=== PATIENT | female | born 1930 | race African-American/Black ===

== ENCOUNTER 2017-12-29 12:06 | Inpatient (IN) | payer OTHER ==
[~2017-12-29] VITALS: Ht 157.5 cm; Wt 68.0 kg
--- NOTE | ~2017-12-29 | 2DMMODE ---
[facility] [address] [place] [address] 2 D/M-MODE ECHOCARDIOGRAM Name: NEWTONCHELA Room #: 428-P [facility] IN ..#: [id number] Admission: 12/29/17 Attend Phys: Yuriy Ortega MD Discharge: Date of : [birth year] Date of Service: 01/05/18 1637 Report #: [id number] THIS REPORT FOR: //name// APPROVED REPORT Study performed: 01/05/2018 12:44:55 EXAM: Comprehensive 2D, Doppler, and color-flow Echocardiogram Patient Location: Bedside Room #: 428 Status: routine BSA: 1.69 HR: 76 bpm BP: 127/57 mmHg Other Information Study Quality: Good Indications Congestive Heart Failure CAD 2D Dimensions RVDd: 27.17 mm LVEF(%): 69.65 (>50%) IVSd: 15.50 (7-11mm) LVOT Diam: 19.74 (18-24mm) LVDd: 38.52 mm PWd: 11.63 (7-11mm) Ascending Ao: 35.17 (22-36mm) LVDs: 23.65 (25-40mm) Aortic Root: 25.10 mm IVC: 21.00 mm Snatana's LVEF: 69.65 % Volumes Left Atrial Volume (Systole) Single Plane 4CH: 55.58 mL Single Plane 2CH: 78.97 mL LA ESV Index: 42.00 mL/m2 Aortic Valve AoV Peak John.: 1.79 m/s AO Peak Gr.: 12.84 mmHg LVOT Max P.86 mmHg LVOT Max V: 1.21 m/s ASHOK Vmax: 2.07 cm2 Pulmonary Valve PV Peak John.: 1.20 m/s PV Peak Gr.: 5.74 mmHg [facility] [place] [address] 2 D/M-MODE ECHOCARDIOGRAM Name: CHELA GLEZ Room #: 428-P ADM IN M.R.#: [id number] Admission: 12/29/17 Attend Phys: Yuriy Ortega MD Discharge: Date of : 11/01/[birth year] Date of Service: 01/05/18 1637 Report #: [id number] Tricuspid Valve TR Peak John.: 3.22 m/s TR Peak Gr.: 41.44 mmHg PA Pressure: 51.00 mmHg Left Ventricle The left ventricle is normal size. Moderate concentric left ventricular hypertrophy. Left ventricular systolic function is moderate to severely decreased. LVEF is 25-30%. Hypokinesis of mid to distal septum, anterolateral wall, and inferoapex The diastolic function is abnormal. Right Ventricle The right ventricle is normal size. The right ventricular systolic function is normal. Atria Left atrium is dilated. Right atrium is dilated. Aortic Valve Aortic valve is mildly calcified. No aortic regurgitation is present. There is no aortic valvular stenosis. Mitral Valve Moderate mitral annular calcification Mild mitral regurgitation. No evidence of mitral valve stenosis. Tricuspid Valve The tricuspid valve is normal in structure. There is moderate tricuspid regurgitation. Estimated PAP 50 mmHg. There is moderate pulmonary hypertension. Pulmonic Valve The pulmonary valve is normal in structure. Mild pulmonic regurgitation. Great Vessels The aortic root is normal in size. IVC is dilated and collapses >50% with inspiration. Pericardium Small pericardial effusion. <Conclusion> Left ventricular systolic function is moderate to severely decreased. [facility] [address] [place] [address] 2 D/M-MODE ECHOCARDIOGRAM Name: CHELA GLEZ Room #: 428-P ADM IN .R.#: [id number] Admission: 12/29/17 Attend Phys: Yuriy Ortega MD Discharge: Date of : [birth year]/01/[birth year] Date of Service: 01/05/181636 Report #: [id number] LVEF is 25-30%. Hypokinesis of mid to distal septum, anterolateral wall, and inferoapex Both atria are dilated. Aortic valve is mildly calcified. No aortic regurgitation or stenosis Moderate mitral annular calcification. Mild mitral regurgitation. There is moderate tricuspid regurgitation. Estimated pulmonary artery pressure of 50 mmHg. Small pericardial effusion. <ELECTRONICALLY SIGNED> By: Gus Diaz MD, [facility] 01/05/181636 36 36 Gus Diaz MD, [facility] /INF
--- NOTE | ~2017-12-29 | EKG ---
[address] [address] [place] [address] ELECTROCARDIOGRAM REPORT Name: CHELA GLEZ Room #: 428-P ADM IN M.R.#: [id number] Admission: 12/29/17 Attend Phys: Yuriy Ortega MD Discharge: Date of : 11/01/[birth year] Report #: [id number] THIS REPORT FOR: //name// [facility] ED Test Date: 2017-12-29 Test Time: 12:19:41 Pat Name: CHELA GLEZ Department: Room: [facility] Gender: F [employer] Dean: KATERINE : 1930 Requested By: Cynthia Gonzales Order Number: [id number] MD: Gus Diaz Measurements Intervals [place] Rate: 74 P: 11 RI: 221 QRS: -46 QRSD: 126 T: 2 QT: 465 QTc: 516 Interpretive Statements Sinus rhythm Prolonged RI interval Left bundle branch block Baseline wander in lead(s) V2 No previous ECG available for comparison Electronically Signed On 12-29-2017 16:54:09 CDT by Gus Diaz [email or web address] <ELECTRONICALLY SIGNED> By: Gus Diaz MD, [facility] 12/29/17 1654 1219 1219 Gus Diaz MD, [facility] /EPI
--- NOTE | ~2017-12-29 | P ---
[facility] [place] [place] [address] PROCEDURE REPORT Name: CHELA GLEZ Room #: 428-P [facility] IN .R.#: [id number] Admission: 12/29/17 Attend Phys: Yuriy Ortega MD Discharge: Date of : 11/01/[birth year] Report #: [id number] THIS REPORT FOR: //name// CC: FAM unknown Yuriy Ortega MD DATE OF SERVICE: 01/05/2018 PROCEDURE PERFORMED: Upper endoscopy. HISTORY OF PRESENT ILLNESS: The patient is an 87-year-old female who presented with an upper GI bleed, underwent upper endoscopy by my partner, Dr. Askew on 12/31/2017. She was noted to have severe esophagitis. There was some bright red blood, but not brisk bleeding near the GE junction, but not a specific site was identified. She also had a large hiatal hernia. She has been on PPI therapy. Her hemoglobin remains low, but stable. She has had a hemoglobin of 7 in the last 3 days. Because of this the plan is to repeat upper endoscopy. DESCRIPTION OF PROCEDURE: The risks and benefits of the procedure were explained to the patient those risks including but not limited to bleeding, perforation, the risk of sedation. She understood these risks and gave informed consent. Sedation was given using propofol per anesthesia. Next, using a standard Olympus upper endoscope, the scope was placed in the patient's mouth and advanced under direct vision through the esophagus, stomach and into the second portion of the duodenum. The mid and distal esophagus showed grade D erosive esophagitis. No active bleeding appears to be in the process of healing. At the GE junction, there were no signs of bleeding. Overall upon entering the stomach, a large hiatal hernia was noted. There was a mild gastritis noted, but no ulcers or erosions. There was no blood noted throughout the exam today. The antrum was normal. The pylorus was normal and patent. The duodenal bulb, first and second portion were all normal. The scope was then withdrawn and the procedure terminated. The patient tolerated the procedure well. IMPRESSION: 1. Grade D erosive esophagitis suspect this is in the process of healing. No evidence of bleeding. 2. Large hiatal hernia. 3. Mild gastritis. 4. Otherwise, normal upper endoscopy. RECOMMENDATIONS: Continue PPI therapy and monitoring hemoglobin. [address] [address] PROCEDURE REPORT Name: CHELA GLEZ Room #: 428-P [facility] IN .R.#: [id number] Admission: 12/29/17 Attend Phys: Yuriy Ortega MD Discharge: Date of : 11/01/[birth year] Report #: [id number] Thank you for allowing me to participate in her care. <ELECTRONICALLY SIGNED> By: Kd Molina MD 01/07/18 1032 1548 1016 Kd Molina MD /nt
--- NOTE | ~2017-12-29 | P ---
[facility] [place] [address] [place] [address] PROCEDURE REPORT Name: CHELA GLEZ Room #: 428-P ADM IN M.R.#: [id number] Admission: 12/29/17 Attend Phys: Yuriy Ortega MD Discharge: Date of : 11/01/[birth year] Report #: [id number] THIS REPORT FOR: //name// CC: Dr. Chan FAM unknown Yuriy Ortega DATE OF SERVICE: 12/31/2017 INPATIENT UPPER ENDOSCOPY BRIEF HISTORY: The patient is an 87-year-old woman who presented with anemia and hematemesis. PREOPERATIVE DIAGNOSIS: Anemia and hematemesis. POSTOPERATIVE DIAGNOSES: 1. Large hiatus hernia. 2. Esophagitis with oozing of bright red blood. MEDICATIONS: Deep sedation with propofol per anesthesia. SPECIMEN: None. ESTIMATED BLOOD LOSS: None related. PROCEDURE: Esophagogastroduodenoscopy . FINDINGS: Prior to propofol sedation, procedure of upper endoscopy was discussed with the patient. She indicates she understands and desires that we proceed. With the patient in left lateral decubitus position, the Olympus video endoscope was inserted in the cervical esophagus under direct vision without difficulty. The scope was advanced in the distal esophagus and it was noted to be filled with blackish liquid. We immediately started aspirating this blackish liquid. The distal esophagus was cleared and the GE junction was visualized. There was a streak of bright red blood; however, a specific significant bleeding site could not be seen. There was friability in this area, but an ulcer was not seen, also a mass lesion was not seen. The scope was advanced into a large pool of blackish fluid. Almost all of this was aspirated away with the scope. Upon further inspection, this was felt to represent a large hiatus hernia. There was a small amount of articular black material and solid black material, which could not be aspirated out. Almost all the fluid was removed. I was able to retroflex the scope in the hiatus hernia. I could see a little bit of blood at the GE junction, but could not see an actively spurting or markedly bleeding [facility] [address] [place] [address] PROCEDURE REPORT Name: GLEZCHELA Room #: 428- ADM IN .R.#: [id number] Admission: 12/29/17 Attend Phys: Yuriy Ortega MD Discharge: Date of : 11/01/[birth year] Report #: [id number] lesion. Again, no mass lesions were seen. The scope was advanced in the distal stomach, was examined on end views and retroflexed views. The mucosa was coated with blackish material, but no ulcers or bleeding lesions were seen. The pylorus was unremarkable. The duodenum and postbulbar duodenal sweep were inspected and noted to be free of blood. At that point, scope was slowly withdrawn and careful circumferential views were obtained. The patient tolerated the procedure well. DISPOSITION: The patient with hematemesis. The problem in this patient is a very large hiatus hernia. It was filled with fluid when we entered the hiatus hernia with the scope. Some oozing was encountered. She does not appear to be actively bleeding at this point in time. We will place her on a proton pump inhibitor. It is a difficult problem in a patient with dementia and a large hiatus hernia. Surgery is certainly a consideration and may need to be considered. Also, continue to monitor hemoglobin. <ELECTRONICALLY SIGNED> By: Mark Askew MD 01/07/18 0721 1411 [id number] Mark Askew MD /nt
[2017-12-29 12:07] VITALS: BP 157/69
[2017-12-29 12:52] LABS: HEMATOCRIT 23.9 % (37.0-47.0); HEMOGLOBIN 7.9 gm/dL (12.0-15.0); MCH 27.6 pg (26.0-34.0); MCHC 32.9 g/dL (28.0-37.0); PLATELET COUNT 204 thou/uL (150-400); RBC 2.85 mil/uL (4.20-5.00); RDW 22.3 % (10.5-14.5); WBC 10.5 thou/uL (4.0-11.0)
[2017-12-29 12:57] LABS: ANION GAP 9 mmol/L (7-16); BUN 49 mg/dL (7-18); CALCIUM 9.9 mg/dL (8.5-10.1); CHLORIDE 101 mmol/L (98-107); CO2 30 mmol/L (21-32); CREATININE 2.4 mg/dL (0.6-1.0); GLUCOSE 103 mg/dL (74-106); POTASSIUM 3.6 mmol/L (3.5-5.1); SODIUM 140 mmol/L (136-145)
[2017-12-29 13:06] LABS: TROPONIN-I <0.06 ng/mL (<0.06)
[2017-12-29 13:22] LABS: ABSOLUTE NEUTROPHILS 7.6 thou/uL (1.4-8.2); NUCLEATED RBCS 1 /100WBC; PLATELET ESTIMATE NORMAL
[2017-12-29 13:23] LABS: ANISOCYTOSIS 2+; HYPOCHROMASIA 2+
[2017-12-29 13:54] LABS: URINE BILIRUBIN NEGATIVE (Negative); URINE BLOOD NEGATIVE (Negative); URINE CLARITY CLEAR; URINE COLOR YELLOW; URINE GLUCOSE-RANDOM* NEGATIVE (Negative); URINE KETONES NEGATIVE (Negative); URINE NITRITE-REFLEX NEGATIVE (Negative); URINE PROTEIN (DIPSTICK) NEGATIVE (Negative); URINE SPECIFIC GRAVITY <= 1.005 (1.005-1.035); URINE UROBILINOGEN 0.2 E.U./dl (0.2-1.0)
[2017-12-29 13:55] LABS: URINE LEUKOCYTES-REFLEX 1+ (Negative)
[2017-12-29 14:08] LABS: BACTERIA-REFLEX None Seen /HPF (None Seen); CASTS None Seen /LPF (None Seen); CRYSTALS None Seen /LPF (None Seen); SQUAMOUS 0-3 Few /LPF (0-3); URINE RBC 0-2 Rare /HPF (0-2); URINE WBC-REFLEX 6-15 Few /HPF (0-5)
[2017-12-29 14:56] VITALS: BP 157/69
[2017-12-29] MEDS ORDERED: XANAX 0.25 MG0.25 MG PO (15:26)
[2017-12-29] MEDS ORDERED: LASIX 40 MG TAB40 M2 PO (15:26)
[2017-12-29] MEDS ORDERED: TOLTERODINE PO (15:27)
[2017-12-29] MEDS ORDERED: CARVEDILOL12.5 MG PO (15:27)
[2017-12-29] MEDS ORDERED: OMEPRAZOLE 20 M20 M1 PO (15:28)
[2017-12-29] MEDS ORDERED: NORVASC5 MG PO (15:28)
[2017-12-29] MEDS ORDERED: ASA5UEC PO (15:29)
[2017-12-29] MEDS ORDERED: [UNRECOGNIZED DRUG - OTHER] PO (15:29)
[2017-12-29 15:58] VITALS: BP 152/58
[2017-12-29 16:35] LABS: % SATURATION 17 % (20-39); IRON 60 ug/dL (50-170); TIBC 355 ug/dL (250-450)
[2017-12-29 16:36] LABS: CHOLESTEROL 272 mg/dL (<200); HDL CHOLESTEROL 40 mg/dL (>40); LDL CHOLESTEROL 211 mg/dL (<100); TC:HDL 6.8 Ratio (Not establshd); TRIGLYCERIDE 106 mg/dL (<150); VLDL 21 mg/dL (<40)
[2017-12-29 16:37] LABS: SERUM ASSESSMENT Clear
[2017-12-29 16:53] LABS: FOLIC ACID 15.7 ng/mL (8.6-58.9)
[2017-12-29 17:03] LABS: TSH 1.305 uIU/mL (0.358-3.740)
[2017-12-29 19:47] VITALS: BP 135/51
[2017-12-30] VITALS: BP 127/56
[2017-12-30 03:45] VITALS: BP 160/66
[2017-12-30 06:07] LABS: BASOPHILS 0.4 % (0.0-2.0); EOSINOPHILS 1.1 % (0.0-3.0); HEMOGLOBIN 7.5 gm/dL (12.0-15.0); LYMPHOCYTES 16.7 % (24.0-44.0); MCH 27.3 pg (26.0-34.0); MCHC 32.5 g/dL (28.0-37.0); MCV 83.9 fL (80.0-100.0); MONOCYTES 7.5 % (1.0-8.0); PLATELET COUNT 178 thou/uL (150-400); POLYS 74.3 % (36.0-66.0); RBC 2.74 mil/uL (4.20-5.00); RDW 22.3 % (10.5-14.5)
[2017-12-30 06:15] LABS: CALCIUM 9.3 mg/dL (8.5-10.1); CREATININE 2.2 mg/dL (0.6-1.0); MAGNESIUM 1.7 mg/dL (1.8-2.4); POTASSIUM 3.2 mmol/L (3.5-5.1)
[2017-12-30 09:44] VITALS: BP 142/58
[2017-12-30 16:20] VITALS: BP 130/62
[2017-12-30 20:10] VITALS: BP 143/64
[2017-12-31 04:05] VITALS: BP 151/62
[2017-12-31 06:08] LABS: MCH 27.9 pg (26.0-34.0); MCHC 33.2 g/dL (28.0-37.0); MCV 83.8 fL (80.0-100.0); RBC 2.28 mil/uL (4.20-5.00); RDW 22.4 % (10.5-14.5); WBC 9.4 thou/uL (4.0-11.0)
[2017-12-31 06:10] LABS: HEMATOCRIT 19.1 % (37.0-47.0); HEMOGLOBIN 6.4 gm/dL (12.0-15.0)
[2017-12-31 06:11] LABS: CALCIUM 8.7 mg/dL (8.5-10.1); CREATININE 1.9 mg/dL (0.6-1.0); POTASSIUM 3.6 mmol/L (3.5-5.1)
[2017-12-31 08:25] VITALS: BP 166/70
[2017-12-31 12:07] VITALS: BP 152/61
[2017-12-31 15:10] VITALS: BP 150/50
[2017-12-31 16:10] VITALS: BP 150/50; BP 152/61
[2017-12-31 18:48] LABS: HEMATOCRIT 25.8 % (37.0-47.0)
[2017-12-31 18:54] LABS: HEMOGLOBIN 8.6 gm/dL (12.0-15.0)
[2017-12-31 20:00] VITALS: BP 135/82
[2018-01-01 04:37] VITALS: BP 105/54
[2018-01-01 05:55] LABS: HEMATOCRIT 22.8 % (37.0-47.0); HEMOGLOBIN 7.5 gm/dL (12.0-15.0); MCH 27.4 pg (26.0-34.0); MCHC 32.8 g/dL (28.0-37.0); MCV 83.6 fL (80.0-100.0); RBC 2.72 mil/uL (4.20-5.00); WBC 13.9 thou/uL (4.0-11.0)
[2018-01-01 07:27] VITALS: BP 113/64
[2018-01-01 15:14] VITALS: BP 104/57
[2018-01-01 20:00] VITALS: BP 126/69
[2018-01-02 04:00] VITALS: BP 110/63
[2018-01-02 05:19] LABS: HEMATOCRIT 24.1 % (37.0-47.0); HEMOGLOBIN 7.5 gm/dL (12.0-15.0); MCH 26.8 pg (26.0-34.0); MCHC 31.3 g/dL (28.0-37.0); MCV 85.5 fL (80.0-100.0); RBC 2.81 mil/uL (4.20-5.00); RDW 20.3 % (10.5-14.5); WBC 16.5 thou/uL (4.0-11.0)
[2018-01-02 05:59] LABS: CALCIUM 9.2 mg/dL (8.5-10.1); POTASSIUM 3.3 mmol/L (3.5-5.1)
[2018-01-02 08:17] VITALS: BP 132/75
[2018-01-02 16:21] VITALS: BP 121/59
[2018-01-03 04:30] VITALS: BP 109/48
[2018-01-03 05:29] LABS: HEMATOCRIT 21.4 % (37.0-47.0); MCH 27.3 pg (26.0-34.0); MCHC 32.5 g/dL (28.0-37.0); MCV 83.8 fL (80.0-100.0); RBC 2.56 mil/uL (4.20-5.00); RDW 19.6 % (10.5-14.5); WBC 15.1 thou/uL (4.0-11.0)
[2018-01-03 05:40] LABS: CALCIUM 8.5 mg/dL (8.5-10.1); CREATININE 1.9 mg/dL (0.6-1.0); POTASSIUM 3.4 mmol/L (3.5-5.1)
[2018-01-03 07:08] VITALS: BP 106/48
[2018-01-03 16:49] VITALS: BP 107/36
[2018-01-03 21:26] VITALS: BP 102/45
[2018-01-04 04:55] VITALS: BP 107/54
[2018-01-04 05:00] VITALS: BP 135/88
[2018-01-04 06:09] LABS: HEMATOCRIT 21.4 % (37.0-47.0); MCH 27.5 pg (26.0-34.0); MCHC 32.5 g/dL (28.0-37.0); MCV 84.6 fL (80.0-100.0); RBC 2.53 mil/uL (4.20-5.00); RDW 19.9 % (10.5-14.5); WBC 14.7 thou/uL (4.0-11.0)
[2018-01-04 06:23] LABS: CALCIUM 8.4 mg/dL (8.5-10.1); CREATININE 2.2 mg/dL (0.6-1.0); POTASSIUM 3.2 mmol/L (3.5-5.1)
[2018-01-04 07:17] VITALS: BP 125/47
[2018-01-04 19:22] VITALS: BP 114/48
[2018-01-05 04:56] VITALS: BP 123/59
[2018-01-05 08:57] VITALS: BP 127/57
[2018-01-05 16:24] VITALS: BP 152/69
[2018-01-05 20:05] VITALS: BP 127/60
[2018-01-06 04:03] VITALS: BP 123/56
[2018-01-06 05:41] LABS: HEMATOCRIT 20.5 % (37.0-47.0); HEMOGLOBIN 6.7 gm/dL (12.0-15.0); MCH 27.3 pg (26.0-34.0); MCHC 32.7 g/dL (28.0-37.0); MCV 83.4 fL (80.0-100.0); RBC 2.45 mil/uL (4.20-5.00); RDW 20.4 % (10.5-14.5); WBC 14.8 thou/uL (4.0-11.0)
[2018-01-06 05:53] LABS: CALCIUM 8.1 mg/dL (8.5-10.1); CREATININE 1.9 mg/dL (0.6-1.0)
[2018-01-06 05:57] LABS: ABSOLUTE RETIC COUNT 0.0724 10^6/uL; OBSERVED RETIC COUNT 2.88 % (0.6-2.6)
[2018-01-06 06:01] LABS: POTASSIUM 2.8 mmol/L (3.5-5.1)
[2018-01-06 07:15] VITALS: BP 135/62
[2018-01-06 16:02] VITALS: BP 118/56
[2018-01-06 20:00] VITALS: BP 133/50
[2018-01-06 22:52] LABS: HEMATOCRIT 26.3 % (37.0-47.0)
[2018-01-06 22:53] LABS: HEMOGLOBIN 8.8 gm/dL (12.0-15.0)
[2018-01-07 04:00] VITALS: BP 144/60
[2018-01-07 06:01] LABS: HEMATOCRIT 25.2 % (37.0-47.0); HEMOGLOBIN 8.6 gm/dL (12.0-15.0); MCH 28.8 pg (26.0-34.0); MCHC 34.1 g/dL (28.0-37.0); MCV 84.3 fL (80.0-100.0); RBC 2.99 mil/uL (4.20-5.00); RDW 18.6 % (10.5-14.5); WBC 14.1 thou/uL (4.0-11.0)
[2018-01-07 06:17] LABS: CALCIUM 8.8 mg/dL (8.5-10.1); CREATININE 1.8 mg/dL (0.6-1.0); POTASSIUM 3.5 mmol/L (3.5-5.1)
[2018-01-07 07:30] VITALS: BP 121/53
[2018-01-07 15:44] VITALS: BP 124/59
[2018-01-07 19:20] VITALS: BP 113/60
[2018-01-08 04:05] VITALS: BP 119/48
[2018-01-08 05:47] LABS: HEMATOCRIT 24.2 % (37.0-47.0); HEMOGLOBIN 8.1 gm/dL (12.0-15.0); MCH 28.3 pg (26.0-34.0); MCHC 33.4 g/dL (28.0-37.0); MCV 84.8 fL (80.0-100.0); RBC 2.86 mil/uL (4.20-5.00); RDW 19.4 % (10.5-14.5); WBC 13.8 thou/uL (4.0-11.0)
[2018-01-08 06:04] LABS: CALCIUM 8.6 mg/dL (8.5-10.1); CREATININE 1.9 mg/dL (0.6-1.0); POTASSIUM 3.7 mmol/L (3.5-5.1)
[2018-01-08 11:13] VITALS: BP 82/62
[2018-01-08] MEDS ORDERED: LEVAQUIN 250 M250 MG PO (13:05)
[2018-01-08] MEDS ORDERED: DEMADEX20 MG PO (13:32)
[2018-01-08 16:26] VITALS: BP 122/56
[2018-01-08 21:09] LABS: URINE BILIRUBIN NEGATIVE (Negative); URINE BLOOD 1+ (Negative); URINE CLARITY CLEAR; URINE COLOR YELLOW; URINE GLUCOSE-RANDOM* NEGATIVE (Negative); URINE KETONES NEGATIVE (Negative); URINE NITRITE-REFLEX NEGATIVE (Negative); URINE PROTEIN (DIPSTICK) NEGATIVE (Negative); URINE UROBILINOGEN 0.2 E.U./dl (0.2-1.0)
[2018-01-08 21:21] LABS: URINE LEUKOCYTES-REFLEX TRACE (Negative)
[2018-01-08 21:23] LABS: SQUAMOUS 0-3 Few /LPF (0-3)
[2018-01-08 21:24] LABS: CRYSTALS None Seen /LPF (None Seen); HYALINE CASTS 0-3 Few /LPF (None Seen); URINE RBC 0-2 Rare /HPF (0-2); URINE WBC-REFLEX 0-5 Rare /HPF (0-5)
[2018-01-08 22:30] VITALS: BP 128/68
[2018-01-09 04:00] VITALS: BP 131/62
[2018-01-09 05:07] LABS: HEMATOCRIT 26.2 % (37.0-47.0); HEMOGLOBIN 8.7 gm/dL (12.0-15.0); MCH 28.1 pg (26.0-34.0); MCHC 33.2 g/dL (28.0-37.0); MCV 84.5 fL (80.0-100.0); RBC 3.1 mil/uL (4.20-5.00); RDW 19.5 % (10.5-14.5); WBC 14.6 thou/uL (4.0-11.0)
[2018-01-09 05:27] LABS: ALBUMIN 2.7 g/dL (3.4-5.0); CALCIUM 9.2 mg/dL (8.5-10.1); CREATININE 1.9 mg/dL (0.6-1.0); POTASSIUM 3.3 mmol/L (3.5-5.1); TOTAL BILIRUBIN 0.4 mg/dL (<0.1-1.0); TOTAL PROTEIN 5.8 g/dL (6.4-8.2)
[2018-01-09 07:20] VITALS: BP 125/45
[2018-01-09] MEDS ORDERED: LEVAQUIN 250 M250 MG PO (15:35)
[2018-01-09 15:50] VITALS: BP 140/50
[2018-01-09 20:05] VITALS: BP 123/46
[2018-01-10 04:19] VITALS: BP 117/45
[2018-01-10 08:40] VITALS: BP 139/57
[2018-01-10] MEDS ORDERED: ALPRAZOLAM 0.0.25 M1 PO (14:22)
[2018-01-10] MEDS ORDERED: HYDROCODONE-AP1 EAC6 PO ×2 (14:22→14:27)
[2018-01-10] MEDS ORDERED: XANAX 0.25 MG0.25 MG PO (14:27)
== END 2018-01-10 15:59 | DRG 380 ==
LOC: ER 12:06 → 4E 14:24 → EROBS 14:24 → 4E 15:31
PROVIDERS: Emergency Medicine; Hospitalist; Internal Medicine Cardiovascular Disease; Nurse Practitioner; Nurse Practitioner Adult Health; Nurse Practitioner Family; Nurse Practitioner Gerontology; Specialist
PROC: 0DJ08ZZ Inspection of Upper Intestinal Tract, Via Natural or Artificial Opening Endoscopic (ICD-10-PCS; principal; 2017-12-31)
PROC: 30233N1 Transfusion of Nonautologous Red Blood Cells into Peripheral Vein, Percutaneous Approach (ICD-10-PCS; 2017-12-31)
PROC: 0DJ08ZZ Inspection of Upper Intestinal Tract, Via Natural or Artificial Opening Endoscopic (ICD-10-PCS; 2018-01-05)
DX: K22.11 Ulcer of esophagus with bleeding (principal); N17.0 Acute kidney failure with tubular necrosis; I50.23 Acute on chronic systolic (congestive) heart failure; N39.0 Urinary tract infection, site not specified; D62 Acute posthemorrhagic anemia; I69.351 Hemiplegia and hemiparesis following cerebral infarction affecting right dominant side; I13.0 Hypertensive heart and chronic kidney disease with heart failure and stage 1 through stage 4 chronic kidney disease, or unspecified chronic kidney disease; K29.71 Gastritis, unspecified, with bleeding; K44.9 Diaphragmatic hernia without obstruction or gangrene; F41.9 Anxiety disorder, unspecified; H54.61 Unqualified visual loss, right eye, normal vision left eye; E86.0 Dehydration; F32.9 Major depressive disorder, single episode, unspecified; E83.42 Hypomagnesemia; E87.6 Hypokalemia; K21.0 Gastro-esophageal reflux disease with esophagitis; E87.70 Fluid overload, unspecified; D72.829 Elevated white blood cell count, unspecified; N18.9 Chronic kidney disease, unspecified; B96.4 Proteus (mirabilis) (morganii) as the cause of diseases classified elsewhere; Z88.6 Allergy status to analgesic agent; Z90.710 Acquired absence of both cervix and uterus; Z90.49 Acquired absence of other specified parts of digestive tract; Z98.49 Cataract extraction status, unspecified eye; Z82.49 Family history of ischemic heart disease and other diseases of the circulatory system; Z79.82 Long term (current) use of aspirin; Z79.899 Other long term (current) drug therapy; Z79.1 Long term (current) use of non-steroidal anti-inflammatories (NSAID); I25.2 Old myocardial infarction
CPT/HCPCS: 10183; 62110; 62900; 70005